=== PATIENT | male | born 1985 | race American Indian/Alaskan Native ===

== ENCOUNTER 2022-07-24 12:20 | Emergency (ER) | payer OTHER ==
--- NOTE | 2022-07-24 13:29 | Emergency Department Report ---
Chief Complaint: High BP Stated Complaint: HYPERTENSION - HPI History of Present Illness: 37 Y M with no pmh reports to ER from urgent care by EMS for elevated BP with no DX of HTN reports - Exam Vital Signs: Vital Signs 07/24/22 12:25 Temperature 98.2 F Pulse Rate 72 Respiratory 14 Rate Blood Pressure 192/109 [Left] O2 Sat by Pulse 98 Oximetry Physical Exam: A/Ox4, non labored breathing noted. gait steady. neurological intact. no slurred speech noted. MSE screening note: Focused history and physical exam performed. Due to findings the following was ordered: orders placed , pending room assignment for further eval by another provider in back of ER. patient in NAD. ED Disposition for MSE Condition: Stable
--- NOTE | 2022-07-24 14:04 | Cat Scan Report ---
CT BRAIN: 07/24/2022 INDICATION / CLINICAL INFORMATION: elevated BP with headache. COMPARISON: None available. FINDINGS: BRAIN/INTRACRANIAL STRUCTURES: Unenhanced CT images of the brain demonstrate no evidence of acute abn ormality. Ventricles and sulci are normal in size and shape. There is no evidence of hemorrhage or mass. There are no abnormal extra-axial fluid collections. EXTRACRANIAL STRUCTURES: Unremarkable. IMPRESSION: Negative unenhanced CT of the brain All CT scans at this location are performed using dose reduction to ALARA by means of automated expos ure control. Signer Name: Chidi Alicea MD Signed: 07/24/2022 1:59 PM Workstation Name: [id number]
[2022-07-24 14:06] LABS: Basophils % (Auto) 0.1 % (0.0-1.8); Eosinophils # (Auto) 0.1 K/mm3 (0.0-0.4); Eosinophils % (Auto) 1.1 % (0.0-4.3); Hematocrit 44.6 % (35.5-45.6); Hemoglobin 15.1 gm/dl (11.8-15.2); Lymphocytes # (Auto) 1.9 K/mm3 (1.2-5.4); Lymphocytes % (Auto) 25.4 % (13.4-35.0); Mean Corpuscular HGB Conc 34 % (32-34); Mean Corpuscular Volume 94 fl (84-94); Monocytes # (Auto) 0.5 K/mm3 (0.0-0.8); Monocytes % (Auto) 7.5 % (0.0-7.3); Platelet Count 138 K/mm3 (140-440); Red Blood Count 4.76 M/mm3 (3.65-5.03); Red Cell Distribution Width 14.5 % (13.2-15.2)
[2022-07-24 14:30] LABS: Alanine Aminotransferase 14 units/L (7-56); Albumin 4.5 g/dL (3.9-5); BUN/Creatinine Ratio 10; Blood Urea Nitrogen 13 mg/dL (9-20); Calcium 9.5 mg/dL (8.4-10.2); Hemolysis Index 2
[2022-07-24] MEDS ORDERED: cloNIDine 0.2 MG TAB PO ONE (15:44)
--- NOTE | 2022-07-24 16:41 | Emergency Department Report ---
ED General Adult HPI - General Chief complaint: High BP Stated complaint: HYPERTENSION Time Seen by Provider: 07/24/22 16:07 Source: patient, EMS Mode of arrival: Stretcher Limitations: No Limitations - Related Data Previous Rx's Medication Instructions Recorded Last Taken Type lisinopriL [Lisinopril] 20 mg PO DAILY #30 07/24/22 Unknown Rx Allergies Allergy/AdvReac Type Severity Reaction Status Date / Time No Known Allergies Allergy Verified 07/24/22 12:27 ED Review of Systems ROS: Stated complaint: HYPERTENSION Other details as noted in HPI Comment: All other systems reviewed and negative ED Past Medical Hx - Past Medical History Previous Medical History?: No - Surgical History Past Surgical History?: No - Family History Family history: no significant - Social History Smoking Status: Current Every Day Smoker Substance Use Type: None - Medications Home Medications: Home Medications Medication Instructions Recorded Confirmed Last Taken Type lisinopriL [Lisinopril] 20 mg PO DAILY #30 07/24/22 Unknown Rx ED Physical Exam - General Limitations: No Limitations General appearance: alert, in no apparent distress - Head Head exam: Present: atraumatic, normocephalic - Eye Eye exam: Present: normal appearance - ENT ENT exam: Present: mucous membranes moist - Neck Neck exam: Present: normal inspection - Respiratory Respiratory exam: Present: normal lung sounds bilaterally. Absent: respiratory distress - Cardiovascular Cardiovascular Exam: Present: regular rate, normal rhythm. Absent: systolic murmur, diastolic murmur, rubs, gallop - GI/Abdominal GI/Abdominal exam: Present: soft, normal bowel sounds - Rectal Rectal exam: Present: deferred - Extremities Exam Extremities exam: Present: normal inspection - Back Exam Back exam: Present: normal inspection - Neurological Exam Neurological exam: Present: alert, oriented X3 - Psychiatric Psychiatric exam: Present: normal affect, normal mood - Skin Skin exam: Present: warm, dry, intact, normal color. Absent: rash ED Course Vital Signs 07/24/22 07/24/22 07/24/22 12:25 15:59 17:23 Temperature 98.2 F Pulse Rate 72 70 95 H Respiratory 14 18 18 Rate Blood Pressure 192/109 182/107 169/109 [Left] O2 Sat by Pulse 98 99 97 Oximetry ED Medical Decision Making - Lab Data Result diagrams: 07/24/22 13:01 07/24/22 13:01 - Radiology Data Radiology results: report reviewed, image reviewed - Medical Decision Making Labs 07/24/22 07/24/22 07/24/22 13:01 13:01 13:01 WBC 7.3 RBC 4.76 Hgb 15.1 Hct 44.6 MCV 94 MCH 32 MCHC 34 RDW 14.5 Plt Count 138 L Lymph % (Auto) 25.4 [place] % (Auto) 7.5 H Eos % (Auto) 1.1 Baso % (Auto) 0.1 Lymph # (Auto) 1.9 [place] # (Auto) 0.5 Eos # (Auto) 0.1 Baso # (Auto) 0.0 Seg Neutrophils % 65.9 Seg Neutrophils # 4.8 Sodium 139 Potassium 4.5 Chloride 101.0 Carbon Dioxide 27 Anion Gap 16 BUN 13 Creatinine 1.3 Estimated GFR > 60 BUN/Creatinine Ratio 10 Glucose 75 Calcium 9.5 Total Bilirubin 0.50 AST 20 ALT 14 Alkaline Phosphatase 93 Troponin T < 0.010 NT-Pro-B Natriuret Pep 690.3 H Total Protein 8.8 H Albumin 4.5 Albumin/Globulin Ratio 1.0 Vital Signs 07/24/22 07/24/22 07/24/22 12:25 15:59 17:23 Temperature 98.2 F Pulse Rate 72 70 95 H Respiratory 14 18 18 Rate Blood Pressure 192/109 182/107 169/109 [Left] O2 Sat by Pulse 98 99 97 Oximetry Critical care attestation.: If time is entered above; I have spent that time in minutes in the direct care of this critically ill patient, excluding procedure time. ED Disposition Clinical Impression: HTN (hypertension) Disposition: 01 HOME / SELF CARE / HOMELESS Is pt being admited?: No Does the pt Need Aspirin: No Condition: Stable Instructions: Hypertension (ED), Preventing Hypertension, Hypertension, Adult, [id number] Additional Instructions: SEE ATTACHED INFO ON HIGH BLOOD PRESSURE DRINK A LOT OF WATER MED ORDERED TODAY LOW FAT DIET AVOID SALT AVOID FAST FOOD/FRIED FOOD MONITOR YOUR BLOOD PRESSURE RECORD IT DAILY TAKE TO PCP APPNT REFERRAL BELOW MAKE AN APPNT TOMORROW WITH PCP APPNT SHOULD BE NEXT WEEK Referrals: DEJUAN CRABTREE MD [Primary Care Provider] - 3-5 Days Forms: Work/School Release Form(ED) Time of Disposition: 17:42
[2022-07-24 17:35] VITALS: BP 169/109
== END 2022-07-24 17:50 | disposition home or self-care (01) ==
LOC: ED 12:20
DX: I10 Essential (primary) hypertension (principal); F17.200 Nicotine dependence, unspecified, uncomplicated
CPT/HCPCS: 36415; 70450; 80053; 83880; 84484; 85025; 99284